=== PATIENT | male | born 1995 | race Two or more races ===

== ENCOUNTER 2021-12-09 08:40 | Emergency (ER) | payer OTHER ==
[~2021-12-09] VITALS: Ht 170.2 cm; Wt 71.3 kg
--- NOTE | 2021-12-09 08:50 | NUR ---
[id number] FOR OVERDOSE ON BENZO, ALCOHOL, METH AND HEROIN LAST [facility]. THE PATIENT IS ALERT AND ORIENTED X2. VERBALLY RESPONSIVE. DENIES PAIN. IN ROOM AIR AND DENIES SOB. RESPIRATION REGULAR AND UNLABORED. DENIES SI/HI. DENIES HAVING ANY HALLUCINATIONS. ATTACHED TO THE MONITOR. SITTER AT THE BEDSIDE. WILL CONTINUE TO MONITOR THE PATIENT.
--- NOTE | 2021-12-09 08:57 | NUR ---
DR JOHNSON AT THE BEDSIDE
--- NOTE | 2021-12-09 09:02 | NUR ---
COVID ANTIGEN SWAB DONE AND SENT TO THE LAB
--- NOTE | 2021-12-09 09:08 | NUR ---
SAFETY CHECK DONE BY [facility] SE[facility] NAILER. PRIMARY RN AWARE.
[2021-12-09 09:26] LABS: BASOPHILS # (AUTO) 0.1 K/uL (0.0-0.2); BASOPHILS % (AUTO) 0.7 % (0.0-2.0); EOSINOPHILS % (AUTO) 0.7 % (0.0-6.0); HEMATOCRIT 41 % (39-51); LYMPHOCYTES # (AUTO) 2.6 K/uL (0.8-4.8); MEAN CORPUSCULAR HGB CONC 34 g/dl (31.0-36.0); MEAN CORPUSCULAR VOLUME 90 fL (80-96); MONOCYTES # (AUTO) 1.2 K/uL (0.1-1.30); MONOCYTES % (AUTO) 10.3 % (2.0-12.0); NEUTROPHILS # (AUTO) 7.4 K/uL (1.8-8.9); NEUTROPHILS % (AUTO) 65.3 % (43.0-81.0); PLATELET COUNT (AUTO) 247 K/uL (150-450); RED BLOOD CELL COUNT(AUTO) 4.62 MIL/uL (4.5-6.0); WHITE BLOOD COUNT (AUTO) 11.3 K/uL (4.3-11.0)
[2021-12-09 09:38] LABS: CALCIUM, SERUM 8.9 mg/dL (8.5-10.1); CARBON DIOXIDE 29 mmol/L (21-32); CHLORIDE 100 mmol/L (98-107); CREATININE 1.1 mg/dL (0.6-1.3); GLUCOSE 104 mg/dL (74-106); POTASSIUM 3.2 mmol/L (3.5-5.1); SODIUM SERUM 140 mmol/L (136-145); UREA NITROGEN, BLOOD 13 mg/dL (7-18)
[2021-12-09 09:44] LABS: ALANINE AMINOTRANSFERASE 101 U/L (12-78); ALBUMIN 4.3 g/dL (3.4-5.0); ALCOHOL, BLOOD < 3 mg/dL (0-0); ALKALINE PHOSPHATASE 126 U/L (46-116); ASPARTATE AMINOTRANSFERASE 77 U/L (15-37); BILIRUBIN,DIRECT 0.3 mg/dL (0.0-0.2); TOTAL PROTEIN, SERUM 8.2 g/dL (6.4-8.2)
[2021-12-09 09:45] LABS: ACETAMINOPHEN 0 ug/ml (10-30)
[2021-12-09] MEDS ORDERED: POTASSIUM CHLORIDE 20 MEQ TAB.PRT.SR PO ONE ×2 (10:00→10:15)
--- NOTE | 2021-12-09 10:00 | NUR ---
THE PATIENT IS SERVED BREAKFAST. REX WELL.
[2021-12-09 10:01] LABS: BILIRUBIN,URINE MODERATE (NEGATIVE); COLOR,URINE YELLOW (YELLOW); LEUKOCYTE ESTERASE ,URINE NEGATIVE (NEGATIVE); NITRITE, URINE NEGATIVE (NEGATIVE); PROTEIN,URINE NEGATIVE (NEGATIVE); UGLUCOSE NEGATIVE (NEGATIVE); UROBILINOGEN,URINE 0.2 EU/dL (0.2)
--- NOTE | 2021-12-09 10:02 | NUR ---
URINE COLLECTED AND SENT TO THE LAB
[2021-12-09 10:21] LABS: BACTERIA,URINE Few /HPF (None Seen); MUCUS,URINE Few /LPF (None Seen); RBC,URINE 0-2 /HPF (0-2); SQUAMOUS EPITHELIAL CELL,UR Rare /HPF (None Seen)
--- NOTE | 2021-12-09 12:05 | NUR ---
Conner reynaga in ED - 12/09/21 at 1546 by DAMARIS THE PATIENT IS SERVED BREAKFAST. REX WELL.
--- NOTE | 2021-12-09 19:08 | NUR ---
FAXED CLINICALS TO [facility]
--- NOTE | 2021-12-09 23:45 | NUR ---
PER ART PT GOT ACCEPTED AT [facility] BY DR MIRZA # [phone]
--- NOTE | 2021-12-10 00:06 | NUR ---
[facility] ETA: 90 MIN
--- NOTE | 2021-12-10 00:24 | NUR ---
REPORT GIVEN TO KARUNA AT [facility]
--- NOTE | 2021-12-10 02:38 | NUR ---
[facility] AT BEDSIDE FOR ACCIDENT REPORT CLERK. PT BEING TRANSFERRED TO [facility] IN STABLE CONDITION.
[2021-12-10 02:39] VITALS: BP 112/60
--- NOTE | 2021-12-10 02:49 | NUR ---
PT WAS TRANSFERRED TO [facility] IN STABLE CONDITION. ALL BELONGINGS WERE PICKED UP
== END 2021-12-10 02:49 ==
LOC: ER 08:44
DX: R45.851 Suicidal ideations (principal); T42.4X4A Poisoning by benzodiazepines, undetermined, initial encounter; T43.624A Poisoning by amphetamines, undetermined, initial encounter; T40.1X4A Poisoning by heroin, undetermined, initial encounter; T51.0X4A Toxic effect of ethanol, undetermined, initial encounter; Y92.89 Other specified places as the place of occurrence of the external cause; F19.10 Other psychoactive substance abuse, uncomplicated; Z59.01 Sheltered homelessness; F32.A Depression, unspecified; F41.9 Anxiety disorder, unspecified; F90.9 Attention-deficit hyperactivity disorder, unspecified type; F43.10 Post-traumatic stress disorder, unspecified; Z86.69 Personal history of other diseases of the nervous system and sense organs; E87.6 Hypokalemia; Z20.822 Contact with and (suspected) exposure to COVID-19
CPT/HCPCS: 36415; 80048; 80076; 80143; 80307; 80320; 81001; 85025; 87086; 87426; 99285; C9803; G0480